=== PATIENT | male | born 1950 | race Caucasian/White ===

== ENCOUNTER 2017-06-08 20:58 | Inpatient (IN) | payer OTHER, MEDICARE ==
[2017-06-08] MEDS: TERAZOSIN HCL 5 MG CAP PO SCH (00:42)
[~2017-06-08 20:58] MED LIST: BISACODYL 10 MG SUPP RECTAL PRN; LACTULOSE SYRUP 20 GM/30 ML CUP PO PRN; MAGNESIUM HYDROXIDE SUSP 30 ML CUP PO PRN; NALOXONE HCL 0.4 MG/ML AMP IV PRN; SENNOSIDES 8.6 MG TAB PO PRN; SODIUM CHLORIDE 0.9% FLUSH 10 ML FLUSH IV FLUSH PRN; TERA5CAP3 PO; ZOLP10TA3 PO
[2017-06-08 21:00] VITALS: PULSE 100
[2017-06-08] MEDS: DOCUSATE SODIUM 50 MG/SENNA 8.6 MG TAB PO SCH (21:00)
[2017-06-08] MEDS: SODIUM CHLORIDE 0.9% FLUSH 10 ML FLUSH IV FLUSH SCH (21:00)
[2017-06-08] MEDS ORDERED: DILTIAZEM INJ 125 MG in SODIUM CHLORIDE 0.9% INJ 100 ML IV SCH (21:15)
[2017-06-08] MEDS ORDERED: DILTIAZEM HCL 25 MG/5 ML VIAL IVP ONE (21:15)
[2017-06-08 22:00] VITALS: BP 134/84; PULSE 87; PULSE 96; RESP 18; TEMP 97.6; O2SAT 97
--- NOTE | 2017-06-08 22:41 | HHI.HP ---
HPI Service [facility] Primary Care Physician Unknown Admission Diagnosis Diagnoses: Chief Complaint: fatigue and irregular heart beats Travel History International Travel<30 Days: No Contact w/Intl Traveler <30 Da: No History of Present Illness 67 y/o male with a history of a silent WV with no history of stents and BPH presented to the ED with complaints of fatigue and irregular heart beat. Patient states for the last 2 years he has been getting more fatigued then normal and has intermittent irregular heart beats. He states he was worked up by a stone sawyer and was told he had an EF of 47% and was never placed on medication. 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 He used to be an avid runner and in very good shape up until about 2 years ago. He states for the last 3 days he has been having increasing fatigue and he felt his heart rate was abnormal. He decided something may be wrong and wanted to get it checked out. At first he presented to [place] [facility] and was found to be in AFIB RVR with a HR of 108. He denies having any chest pain, but does have some dyspnea at times. He was given Metoprol and now his HR is controlled. He denies any fever, chills, headaches, dysuria, bloody stools or dizziness. He also denies any swelling in his lower extremities. Review of Systems Except as stated in HPI: all other systems reviewed are Neg Past Family Social History Past Medical History Silent [place] with no intervention BPH Past Surgical History Patient denies any medical history Reported Medications Reported Meds & Active Scripts Active Reported Zolpidem (Zolpidem Tartrate) 10 Mg Tab 10 Mg PO HS PRN Terazosin (Terazosin HCl) 5 Mg Cap 5 Mg PO HS Allergies: Coded Allergies: Ampicillin (Verified Allergy, Unknown, redness, 06/08/17) Codeine (Verified Allergy, Unknown, Cramping, 06/08/17) Active Ordered Medications Current Medications Medications (Trade) Dose Ordered Sig/Dereje Route Start Time Stop Time Status Last Admin (NS Flush) 2 ml UNSCH PRN IV FLUSH 06/08/17 19:15 (NS Flush) 2 ml BID IV FLUSH 06/08/17 21:00 (Narcan Inj) 0.4 mg UNSCH PRN IV 06/08/17 19:15 (Mirna-Colace) 1 tab BID PO 06/08/17 21:00 (Milk Of Magnesia Liq) 30 ml Q12H PRN PO 06/08/17 19:15 (Senokot) 17.2 mg Q12H PRN PO 06/08/17 19:15 (Dulcolax Supp) 10 mg DAILY PRN RECTAL 06/08/17 19:15 Lactulose 30 ml 30 ml DAILY PRN PO 06/08/17 19:15 (Heparin-D5W Inj) 250 ml @ 0 mls/hr TITRATE IV 06/08/17 22:45 (Hytrin) 5 mg HS PO 06/08/17 23:45 (Ambien) 10 mg HS PRN PO 06/08/17 23:45 Family History Patient denies any family history of heart disease. Social History Tobacco use: Quit 1978 Alcohol use: a glass of wine a night Illicit drug use: Denies Physical Exam Physical Exam GENERAL: This is a well-nourished, well-developed patient, who is a little nervous about his situation SKIN: No rashes, ecchymoses or lesions. Cool and dry. HEAD: Atraumatic. Normocephalic. EYES: Pupils equal round and reactive. Extraocular motions intact. No scleral icterus. No injection or drainage. ENT: Nose without bleeding, purulent drainage or septal hematoma. Airway patent. NECK: Trachea midline. No JVD or lymphadenopathy. Supple, nontender, no meningeal signs. CARDIOVASCULAR: Regular rate and irregular rhythm without murmurs, gallops, or rubs. RESPIRATORY: Clear to auscultation. Breath sounds equal bilaterally. No wheezes , rales, or rhonchi. GASTROINTESTINAL: Abdomen soft, non-tender, nondistended. BS x 4 MUSCULOSKELETAL: Extremities without clubbing, cyanosis, or edema. No joint tenderness, effusion, or edema noted. No calf tenderness. NEUROLOGICAL: Awake and alert. Motor and sensory grossly within normal limits. Five out of 5 muscle strength in all muscle groups. Normal speech. Assessment and Plan Problem List: (1) Afib ICD Code: I48.91 Status: Acute (2) BPH (benign prostatic hyperplasia) ICD Code: N40.0 Status: Chronic (3) Acute kidney injury ICD Code: N17.9 Status: Acute Assessment and Plan 67 y/o male with a history of a silent [place] with no history of stents and BPH presented to the ED with complaints of fatigue and irregular heart beat. Afib, new onset On admission EKG reviewed and showed afib RVR HR 108, Metoprolol given and patient has been controlled. On telemetry patient shows dysthymia with PVCs -Cont to monitor telemetry -Consult cardiology, for recommendations -Cont Heparin drip -Hold Cardizem drip for now as patient HR is controlled at 75 -2d echo ordered Acute kidney injury, creatine 1.5, unknown baseline suspect mild dehydration -Trend levels, BMP in AM -Gentle IVF x 1L BPH, chronic -Cont home medications DVT prophylaxis: Heparin Discussed Condition With patient and RN Physician Certification 2 Midnight Certification Type: Admission for Inpatient Services Order for Inpatient Services The services are ordered in accordance with Medicare regulations or non- Medicare payer requirements, as applicable. In the case of services not specified as inpatient-only, they are appropriately provided as inpatient services in accordance with the 2-midnight benchmark. Estimated LOS (days): 2 days is the estimated time the patient will need to remain in the hospital, assuming treatment plan goals are met and no additional complications. Post-Hospital Plan: Home Problem Qualifiers (1) BPH (benign prostatic hyperplasia): Qualified Code: N40.1 - Benign prostatic hyperplasia with lower urinary tract symptoms, symptom details unspecified Doris Inman Jun 08, 2017 22:41
[2017-06-08] MEDS ORDERED: HEPARIN-D5W INJ 250 ML IV SCH (22:45)
[2017-06-08 23:00] VITALS: PULSE 82
[2017-06-09] VITALS (24 sets, daily range): BP systolic 118–153; BP diastolic 56–89; PULSE 60–84; RESP 16–20; TEMP 97.4–98.2; O2SAT 96–98
[2017-06-09] MEDS ORDERED: SODIUM CHLOR 0.9% 1000 ML INJ 1,000 ML IV ONE (00:15)
[2017-06-09] MEDS ORDERED: SODIUM CHLOR 0.9% 1000 ML INJ 1,000 ML IV SCH (00:15)
[2017-06-09] MEDS: ZOLPIDEM TARTRATE 10 MG TAB PO PRN ×2 (01:15→23:22)
[2017-06-09 02:14] LABS: APTT (PATIENT) 35.5 SEC (24.3-30.1)
[2017-06-09 07:53] LABS: AUTOMATED NEUTROPHIL # 3.8 TH/MM3 (1.8-7.7); BASOPHIL % 0.5 % (0.0-2.0); EOSINOPHIL # 0.1 TH/MM3 (0-0.4); EOSINOPHIL % 1.8 % (0.0-4.0); HEMO FLAGS DIFF FINAL; LYMPH % 38.2 % (9.0-44.0); LYMPHOCYTE # 2.9 TH/MM3 (1.0-4.8); MEAN CELL VOLUME 88.8 FL (80.0-100.0); MEAN CORPUSCULAR HEMOGLOBIN 29.3 PG (27.0-34.0); MONO % 9.2 % (0.0-8.0); NEUT % 50.3 % (16.0-70.0); PLATELET COUNT 177 TH/MM3 (150-450); RED BLOOD COUNT 5.29 MIL/MM3 (4.50-5.90); RED CELL DISTRIBUTION WIDTH 14.2 % (11.6-17.2); WHITE BLOOD COUNT 7.5 TH/MM3 (4.0-11.0)
[2017-06-09] MEDS: SODIUM CHLORIDE 0.9% FLUSH 10 ML FLUSH IV FLUSH SCH ×2 (08:07→20:36)
[2017-06-09] MEDS: DOCUSATE SODIUM 50 MG/SENNA 8.6 MG TAB PO SCH ×2 (08:07→20:37)
[2017-06-09 08:20] LABS: BICARBONATE 29.9 MEQ/L (21.0-32.0); POTASSIUM 4.3 MEQ/L (3.5-5.1)
--- NOTE | 2017-06-09 10:25 | MB ---
cc: AMAN PEREZ MD DATE OF CONSULTATION: 06/09/2017 REASON FOR CONSULTATION: Onset atrial fibrillation. HISTORY OF PRESENT ILLNESS The patient is a very pleasant 67-year-old gentleman with a possible history of atrial fibrillation though the details are somewhat unclear. Also with history of hypertension, particularly with exercise who presents with quite a long period of fatigue but four days of palpitations mainly experienced by him checking his own pulse but also with exacerbation and general fatigue. He presented in atrial fibrillation but is since converted he is otherwise asymptomatic denying chest pain, shortness of breath, lightheadedness or dizziness. PAST MEDICAL HISTORY Benign prostatic hypertrophy Hypertension. MEDICATIONS Terazosin. ALLERGIES Ampicillin Codeine PHYSICAL EXAMINATION IN GENERAL: Afebrile, pulse 63, Respiratory rate 15, blood pressure 124/73, satting 96%. IN GENERAL: Pleasant overweight gentleman in no distress. NECK: No JVD. LUNGS: The lungs are clear to auscultation bilaterally. CARDIOVASCULAR SYSTEM: Regular rate rhythm, somewhat distant heart sounds. No major murmurs appreciated. ABDOMEN: The abdomen is benign. EXTREMITIES: No edema. LABORATORY DATA Cardiac enzymes are negative x3 Sodium 143, potassium 4.3, bicarb 29.9, BUN 14, creatinine 1.48, INR is 1.0, white count 7.5, hematocrit 47, platelets 177. EKG showed atrial fibrillation with nonspecific ST changes. IMPRESSION 1. Atrial fibrillation, the patient has new onset Atrial fibrillation with generalized fatigue. I have started him on Eliquis for NATTY'S vas score of 2 for age and hypertension as well as low-dose oral Cardizem. 2. Fatigue, the patient has had long standing fatigue and with his atrial fibrillation. I do want to rule out an anginal equivalent also particular given some subtle ST changes on his EKG will have him undergo nuclear stress test. 3. If no major findings are found on his echo or his stress test. He could be discharged home with outpatient followup on the regimen which was started. Thank you again for the opportunity to participate this patient's care. MD CRISSY Clark/catrachita /9:14 AM /10:13 AM
[2017-06-09] MEDS ORDERED: REGADENOSON INJ 0.4 MG/5 ML SYR ONE (11:38)
--- NOTE | 2017-06-09 13:11 | RADRPT ---
EXAM DATE/TIME: 06/09/2017 10:53 [facility] COMPARISON: No previous studies available for comparison. INDICATIONS : Fatigue. Atrial fibrillation. DOSE: 31 mCi Tc99m Myoview at stress. 10.1 mCi Tc99m Myoview at rest. 0.4 mg Lexiscan STRESS SYMPTOMS: Chest pressure. EJECTION FRACTION: 62% MEDICAL HISTORY : Myocardial infarction. SURGICAL HISTORY : None. ENCOUNTER: Initial ACUITY: 1 day PAIN SCALE: 0/10 LOCATION: chest TECHNIQUE: The patient underwent pharmacologic stress with infusion of prescribed dose. Continuous ECG tracing was monitored during stress. Gated SPECT imaging was performed after stress and conventional SPECT i maging was performed at rest. The examination was performed on a SPECT/CT scanner, both attenuation and non-corrected datasets were reviewed. FINDINGS: DISTRIBUTION: The maximum perfused segment at stress is in the anterolateral wall. PERFUSION STUDY: There is fixed mild/moderate perfusion deficit in the inferior wall. Small to moderate, mild reversib le perfusion deficit seen inferolateral wall. GATED STUDY: There is intact wall motion and thickening without hypokinetic or dyskinetic segments. 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 Wall motion within normal limits. RISK CATEGORY: Intermediate Andrea Salvador MD on June 09, 2017 at 13:07 Board Certified Radiologist. This report was verified electronically.
[2017-06-09] MEDS: APIXABAN 5 MG TABLET PO SCH ×2 (13:39→20:36)
[2017-06-09] MEDS: DILTIAZEM-CD 120 MG CAP ER PO SCH (13:39)
[2017-06-09 15:29] LABS: APTT (PATIENT) 29.5 SEC (24.3-30.1)
--- NOTE | 2017-06-09 15:34 | HHI.PR ---
Subjective Remarks Follow-up for chest pain and A. fib. Objective Vital Signs Date Time Temp Pulse Resp B/P Pulse Ox O2 Delivery O2 Flow Rate FiO2 06/09/17 14:01 74 06/09/17 13:45 97.5 66 18 153/79 97 06/09/17 13:00 63 06/09/17 10:00 68 06/09/17 09:00 66 06/09/17 08:01 97.4 72 18 125/81 97 06/09/17 08:00 72 06/09/17 07:01 63 06/09/17 06:00 62 06/09/17 05:00 62 06/09/17 04:00 64 06/09/17 03:00 98.2 70 16 124/73 96 06/09/17 03:00 68 06/09/17 02:00 74 06/09/17 01:00 70 06/09/17 00:00 98.2 83 18 138/77 97 06/09/17 00:00 70 06/08/17 23:00 82 06/08/17 22:00 96 06/08/17 22:00 97.6 87 18 134/84 97 06/08/17 21:00 100 I/O 06/08/17 06/08/17 06/08/17 06/09/17 06/09/17 06/09/17 06:59 14:59 22:59 06:59 14:59 22:59 Intake Total 994 ml Output Total 200 ml Balance 794 ml Intake Oral 903 ml IV Total 91 ml Output Urine Total 200 ml # Voids 2 Result Diagram: 06/09/17 0726 06/09/17 0726 Imaging Last Impressions Myocardial Perfusion Scan Nuc Med 06/09/17 0000 Signed Impressions: Service Date/Time: Friday, June 09, 2017 10:53 - CONCLUSION: Mild stress-induced ischemia in the inferolateral wall, 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 Wall motion within normal limits. RISK CATEGORY: Intermediate Andrea Salvador MD Objective Remarks GENERAL: Resting comfortably, no acute distress EYES: No scleral icterus. No injection or drainage. CARDIOVASCULAR: Regular rate and rhythm without murmurs, gallops, or rubs. RESPIRATORY: Breath sounds equal bilaterally. No accessory muscle use. GASTROINTESTINAL: Abdomen soft, non-tender, nondistended. MUSCULOSKELETAL: No cyanosis, or edema. A/P Problem List: (1) Afib ICD Code: I48.91 (2) BPH (benign prostatic hyperplasia) ICD Code: N40.0 (3) Acute kidney injury ICD Code: N17.9 Assessment and Plan 67 y/o male with a history of a silent [place] with no history of stents and BPH presented to the ED with complaints of fatigue and irregular heart beat. Afib, new onset Has been started on a eliquis by cards appreciate input. Tachycardia improved Lexiscan impression suggestive of mild reversible ischemia. Echo is pending. -Cont to monitor telemetry Acute kidney injury, creatine 1.48, more like chronic due to minimal improvement -Trend levels, BMP in AM BPH, chronic -Cont home medications Problem Qualifiers (1) BPH (benign prostatic hyperplasia): Qualified Code: N40.1 - Benign prostatic hyperplasia with lower urinary tract symptoms, symptom details unspecified Jordi Gallardo MD Jun 09, 2017 15:34
[2017-06-09] MEDS: TERAZOSIN HCL 5 MG CAP PO SCH (20:36)
[2017-06-10] VITALS (14 sets, daily range): BP systolic 126–135; BP diastolic 75–81; PULSE 58–86; RESP 18; TEMP 97.6–98.1; O2SAT 97–99
[2017-06-10] MEDS: DILTIAZEM-CD 120 MG CAP ER PO SCH (08:35)
[2017-06-10] MEDS: APIXABAN 5 MG TABLET PO SCH (08:36)
--- NOTE | 2017-06-10 08:49 | ECHRPT ---
Indication: HEART FAILURE CONCLUSIONS Normal left ventricular size. Mild concentric left ventricular hypertrophy. The left ventricular systolic function is normal with an estimated ejection fraction in the range of 55-60%. No regional wall motion abnormalities are present. Mild thickening of the mitral valve leaflets. The anterior mitral leaflet flattens more but does not significantly prolapses, mild mitral valve regurgitation. BP: 127 / 81 HR: 249 Rhythm: Sinus MEASUREMENTS (Male / Female) Normal Values Technical Quality:Fair 2D ECHO LV Diastolic Diameter PLAX 4.9 cm 4.2 - 5.9 / 3.9 - 5.3 cm LV Systolic Diameter PLAX 3.8 cm IVS Diastolic Thickness 1.2 cm 0.6 - 1.0 / 0.6 - 0.9 cm LVPW Diastolic Thickness 1.2 cm 0.6 - 1.0 / 0.6 - 0.9 cm LV Relative Wall Thickness 0.5 LVOT Diameter 2.6 cm Aortic Root Diameter 3.4 cm LA Systolic Diameter LX 3.5 cm 3.0 - 4.0 / 2.7 - 3.8 cm M-MODE AV Cusp Separation MM 2.2 cm DOPPLER AV Peak Velocity 105.0 cm/s AV Peak Gradient 4.4 mmHg AV Mean Gradient 3.0 mmHg AV Velocity Time Integral 22.7 cm LVOT Peak Velocity 102.0 cm/s LVOT Peak Gradient 4.2 mmHg LVOT Velocity Time Integral 18.6 cm AV Area Cont Eq vti 4.4 cm AV Area Cont Eq pk 5.2 cm Mitral E Point Velocity 70.6 cm/s Mitral A Point Velocity 45.4 cm/s Mitral E to A Ratio 1.6 LV E' Lateral Velocity 10.5 cm/s Mitral E to LV E' Lateral Ratio 6.7 LV E' Septal Velocity 9.1 cm/s Mitral E to LV E' Septal Ratio 7.8 PV Peak Velocity 66.2 cm/s PV Peak Gradient 1.8 mmHg FINDINGS LEFT VENTRICLE Normal left ventricular size. Mild concentric left ventricular hypertrophy. The left ventricular systolic function is normal with an estimated ejection fraction in the range of 55-60%. Left ventricular diastolic function parameters are normal. No regional wall motion abnormalities are present. RIGHT VENTRICLE Normal right ventricular size and systolic function. LEFT ATRIUM The left atrial size is normal. RIGHT ATRIUM The right atrial size is normal. ATRIAL SEPTUM Normal atrial septal thickness without atrial level shunting by limited color doppler interrogation. AORTA The aortic root and proximal ascending aorta are normal in size on limited imaging. MITRAL VALVE Mild thickening of the mitral valve leaflets. The anterior mitral leaflet flattens more but does not significantly prolapses.mild mitral valve reg urgitation. AORTIC VALVE Trileaflet aortic valve. No aortic valve stenosis or regurgitation. TRICUSPID VALVE Structurally normal tricuspid valve. No tricuspid valve stenosis or regurgitation. PULMONARY VALVE The pulmonary valve is not well visualized. VESSELS The inferior vena cava is normal in size. PERICARDIUM No pericardial effusion. Riley Fletcher MD (Electronically Signed) Final Date:10 June 2017 08:48
[2017-06-10] MEDS: SODIUM CHLORIDE 0.9% FLUSH 10 ML FLUSH IV FLUSH SCH (09:00)
[2017-06-10] MEDS: DOCUSATE SODIUM 50 MG/SENNA 8.6 MG TAB PO SCH (09:00)
--- NOTE | 2017-06-10 09:35 | HHI.DCPOC ---
Discharge Care Plan Diagnosis: (1) Afib Additional Problems A. fib, irregular heart rate Goals to Promote Your Health * To prevent worsening of your condition and complications * To maintain your health at the optimal level To minimize her risk of having a stroke, we advised that you take a blood thinner as prescribed. For more treatment options for her A. fib, please see an lime spreader within 1 month's time after discharge. Also regarding a history of actually having heart attack, we advise that you continue taking a baby aspirin along with taking a high intensity statin such as atorvastatin or rosuvastatin. Since you are currently against taking those particular medications, I advise that you have a discussion with your senior director or primary care doctor upon discharge to further elucidate your concerns. Directions to Meet Your Goals Take your medications as prescribed Follow your dietary instruction Follow activity as directed Keep your appointments as scheduled Take your immunizations and boosters as scheduled If your symptoms worsen call your PCP, if no PCP go to Urgent Care Center or Emergency Room Smoking is Dangerous to Your Health. Avoid second hand smoke Call the 24-hour hour crisis hotline for domestic abuse at Jordi Gallardo MD Jun 10, 2017 09:35
[2017-06-10] MEDS ORDERED: ASPI-110 PO (09:38)
[2017-06-10] MEDS ORDERED: CARD120C4 PO (09:45)
[2017-06-10] MEDS ORDERED: APIX5TAB PO (09:46)
--- NOTE | 2017-06-10 09:53 | HHI.DS ---
Discharge Summary Admission Date Jun 08, 2017 at 21:03 Discharge Date: Jun 10, 2017 Admitting Diagnosis Chest pain and Atrial fibrillation with RVR (1) Afib ICD Code: I48.91 Diagnosis: Principal (2) BPH (benign prostatic hyperplasia) ICD Code: N40.0 (3) Acute kidney injury ICD Code: N17.9 Procedures none Brief History - From Admission 67 y/o male with a history of a silent [place] with no history of stents and BPH presented to the ED with complaints of fatigue and irregular heart beat. Patient states for the last 2 years he has been getting more fatigued then normal and has intermittent irregular heart beats. He states he was worked up by a aircraft structure mechanic and was told he had an EF of 47% and was never placed on medication. 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 He used to be an avid runner and in very good shape up until about 2 years ago. He states for the last 3 days he has been having increasing fatigue and he felt his heart rate was abnormal. He decided something may be wrong and wanted to get it checked out. At first he presented to [place] [facility] and was found to be in AFIB RVR with a HR of 108. He denies having any chest pain, but does have some dyspnea at times. He was given Metoprol and now his HR is controlled. He denies any fever, chills, headaches, dysuria, bloody stools or dizziness. He also denies any swelling in his lower extremities. 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 Wall motion within normal limits. RISK CATEGORY: Intermediate Andrea Salvador MD 2-D echo showing an ejection fraction of at least 50%, unremarkable otherwise PE at Discharge GENERAL: Resting comfortably EYES: No scleral icterus. No injection or drainage. CARDIOVASCULAR: Regular rate and rhythm without murmurs, gallops, or rubs. RESPIRATORY: Breath sounds equal and clear bilaterally. No accessory muscle use. GASTROINTESTINAL: Abdomen soft, non-tender, nondistended. MUSCULOSKELETAL: No cyanosis, or edema. Hospital Course Patient was admitted on telemetry. His heart rate had been stabilized relatively quickly with diltiazem. Cardiology was consulted and started the pt on eliquis for stroke risk. Patient had a Lexiscan that did show mild reversible ischemia and otherwise unremarkable echocardiogram, discussed results with cardiology who stated that no acute intervention was needed. Patient's symptoms had quickly resolved in less than 24 hours, was chest pain- free and palpitations free. Patient was very hesitant with the idea of anticoagulation out of the concern for uncontrolled bleeding, and he was more so hesitant with taking eliquis since there is no reversible agent for this at the time. I informed him clearly that he was indeed had a substantially elevated stroke risk and that from the medical standpoint anticoagulation from some agent was at the least warranted. Patient says he was willing to take prescription upon discharge and says that he will ultimately do his own personal reading and research and make a long-term decision as well. I offered him to see an anthropology instructor upon discharge to see if he was a candidate for other treatment options - 2 which the patient was very receptive. As explained to the patient that he also medically warranted high-intensity statin therapy given that he had a history of heart attack in the past, but he said that he had already made up his mind a long time ago to not take statins. Patient states that his impaired renal function is chronic and nothing new. Patient has met maximum benefit from hospitalization and is clinically stable for discharge. Pt Condition on Discharge: Good Discharge Disposition: Discharge Home Discharge Time: > 30 minutes Discharge Instructions DIET: Follow Instructions for: Heart Healthy Diet Activities you can perform: Regular-No Restrictions Follow up Referrals: Cardiology - 10 Days with Prashanth Pa MD PCP Follow-up - 1 Week New Medications: Aspirin DR (Aspirin 81) 81 Mg Tabdr 81 MG PO DAILY Blood Clot Prevention #30 Ref 0 TAB Apixaban (Eliquis) 5 Mg Tab 5 MG PO BID Blood Clot Prevention #62 TAB Diltiazem CD 24 HR (Cardizem CD 24 HR) 120 Mg Caper 120 MG PO DAILY Regulate Heart Beat #30 Jordi Lincoln MD Jun 10, 2017 09:53
--- NOTE | 2017-06-10 11:21 | PD.CARD.PN ---
Subjective Subjective Remarks Feels well, in nsr, wants to go home Objective Medications Administered Medications Medications (Trade) Dose Ordered Sig/Dereje Route PRN Reason Start Time Stop Time Status Last Admin Dose Admin Sodium Chloride (NS Flush) 2 ml BID IV FLUSH 06/08/17 21:00 06/10/17 09:00 Terazosin HCl (Hytrin) 5 mg HS PO 06/08/17 23:45 06/09/17 20:36 Zolpidem Tartrate (Ambien) 10 mg HS PRN PO INSOMNIA 06/08/17 23:45 06/09/17 23:22 Apixaban (Eliquis) 5 mg BID PO 06/09/17 10:15 06/10/17 08:36 Diltiazem HCl (Cardizem Cd) 120 mg DAILY PO 06/09/17 10:00 06/10/17 08:35 Vital Signs / I&O Vital Signs Date Time Temp Pulse Resp B/P Pulse Ox O2 Delivery O2 Flow Rate FiO2 06/10/17 10:00 86 06/10/17 09:00 66 06/10/17 08:15 97.8 62 18 135/75 97 06/10/17 08:00 60 06/10/17 07:01 64 06/10/17 06:00 58 06/10/17 05:00 60 06/10/17 04:00 60 06/10/17 03:00 98.1 63 18 127/81 97 06/10/17 03:00 61 06/10/17 02:00 64 06/10/17 01:00 64 06/10/17 00:00 70 06/09/17 23:00 97.6 64 20 129/72 98 06/09/17 23:00 84 06/09/17 22:00 60 06/09/17 21:00 68 06/09/17 19:00 72 06/09/17 19:00 97.9 69 16 146/89 98 06/09/17 18:01 66 06/09/17 17:01 68 06/09/17 16:00 64 06/09/17 15:01 97.9 66 18 118/56 97 06/09/17 15:00 64 06/09/17 14:01 74 06/09/17 13:45 97.5 66 18 153/79 97 06/09/17 13:00 63 I/O 06/09/17 06/09/17 06/09/17 06/10/17 06/10/17 06/10/17 07:00 15:00 23:00 07:00 15:00 23:00 Intake Total 994 ml 630 ml 480 ml Output Total 200 ml 375 ml 275 ml Balance 794 ml 255 ml 205 ml Intake Oral 903 ml 480 ml 480 ml IV Total 91 ml 150 ml Output Urine Total 200 ml 375 ml 275 ml # Voids 2 3 # Bowel Movements 0 Physical Exam GENERAL: This is a well-nourished, well-developed patient, in no apparent distress. CARDIOVASCULAR: Regular rate and rhythm without murmurs, gallops, or rubs. RESPIRATORY: Clear to auscultation. Breath sounds equal bilaterally. No wheezes , rales, or rhonchi. GASTROINTESTINAL: Abdomen soft, non-tender, nondistended. Normal active bowel sounds MUSCULOSKELETAL: Extremities without clubbing, cyanosis, or edema. NEURO: Alert & Oriented x4 to person, place, time, situation. 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 Wall motion within normal limits. RISK CATEGORY: Intermediate Andrea Salvador MD Assessment and Plan Problem List: (1) New onset a-fib Assessment and Plan: on eliquis, cardizem (2) Abnormal nuclear cardiac imaging test Assessment and Plan: Mild ischemia, no chest pain, will medically manage; added atorv. Assessment and Plan Ok to d/c home, will f/u in my office in 1-2 weeks. Riley Fletcher MD Jun 10, 2017 11:20
[2017-06-10] MEDS ORDERED: PRAVASTATIN SOD 20 MG TAB PO SCH (21:00)
== END 2017-06-10 11:40 | disposition home or self-care (01) | DRG 309 ==
LOC: NEDDLT 20:58 → HCIS 21:03
PROVIDERS: ADMIT Hospitalist; ATTEND Hospitalist
DX: I48.91 Unspecified atrial fibrillation (principal); N17.9 Acute kidney failure, unspecified; N40.1 Benign prostatic hyperplasia with lower urinary tract symptoms; I49.3 Ventricular premature depolarization; F34.1 Dysthymic disorder; I25.2 Old myocardial infarction; I10 Essential (primary) hypertension; Z87.891 Personal history of nicotine dependence
CPT/HCPCS: 71010; 78452; 80048; 82550; 83735; 84484; 85025; 85610; 85730; 93005; 93017; 93306; A9502; J1644; J2060; J2785; J7040

== ENCOUNTER 2018-05-13 12:43 | Observation (INO) ==
[2018-05-13 14:31] LABS: Baso % (Auto) 0.4 % (0.0-2.0); Eos # (Auto) 0.1 th/mm3 (0.0-0.4); Hematocrit 50.3 % (39.0-51.0); Hemoglobin 16.8 gm/dL (13.0-17.0); Lymph # (Auto) 1.8 th/mm3 (1.0-4.8); Mean Corpuscular HGB Conc 33.5 % (32.0-36.0); Mean Corpuscular Hemoglobin 29.6 pg (27.0-34.0); Mean Corpuscular Volume 88.5 fL (80.0-100.0); Mean Platelet Volume 10.3 fL (7.0-11.0); Mono # (Auto) 0.8 th/mm3 (0.0-0.9); Mono % (Auto) 9.5 % (0.0-8.0); Neut # (Auto) 5.7 th/mm3 (1.8-7.7); Neut % (Auto) 68.1 % (16.0-70.0); Platelet Count 192 th/mm3 (150-450); Red Blood Count 5.69 mil/mm3 (4.50-5.90); White Blood Count 8.4 th/mm3 (4.0-11.0)
--- NOTE | 2018-05-13 14:43 | XR ---
EXAM DATE: 05/13/2018 2:40 PM EDT AGE/SEX: 67 years / Male INDICATIONS: Shortness of breath. CLINICAL DATA: This is the patient's initial encounter. Patient reports that signs and symptoms have been present for 1 day and indicates a pain score of 0/10. MEDICAL/SURGICAL HISTORY: None. None. COMPARISON: [facility], CHEST SINGLE AP, 06/08/2017. . FINDINGS: PA and lateral views of the chest demonstrate the lungs to be symmetrically aerated without evidence of mass, infiltrate or effusion. The cardiomediastinal contours are unremarkable. Osseous structures are intact. CONCLUSION: Negative for an acute process Electronically signed by: Fernandez Whelan MD 05/13/2018 2:42 PM EDT
[2018-05-13 14:50] LABS: Anion Gap 7 meq/L (5-15); Blood Urea Nitrogen 14 mg/dL (7-18); Calcium 8.8 mg/dL (8.5-10.1); Carbon Dioxide 23.8 meq/L (21.0-32.0); Chloride 110 meq/L (98-107); Glomerular Filtration Rate 56 mL/min (>89); Glucose,Random 93 mg/dL (74-106); Potassium 4.2 meq/L (3.5-5.1); Sodium 141 meq/L (136-145)
[2018-05-13 14:54] LABS: Creatine Kinase 109 U/L (39-308)
--- NOTE | 2018-05-13 15:27 | ED ---
HPI General Chief Complaint: Chest Pain Stated Complaint: Fall/Cardiac Complaint Time Seen by Provider: 05/13/18 14:42 Source: patient Mode of arrival: ambulatory Limitations: no limitations History of Present Illness HPI narrative: 67-year-old male the presents to the ED for evaluation of possible syncope today. Per patient she had a syncopal episode where he did not lose consciousness. Per patient he was going to urinate today and he did and then he lost control of his body and he fell to the ground. He denies hitting his head or losing consciousness. He does take Eliquis. He was able to get himself back up on his own. Patient got really concerned because last week he overexerted himself and he noticed that his heart rate went elevated. Per patient he doubled the dose of Cardizem as he is lens matcher have told him to do so if it happened. He states that he takes 120 mg of Cardizem ER and to 2 doses every day since 08 May. He has not noted any symptoms alert and his heart rate still being elevated. Per patient today she had no preloading symptoms to the syncopal episode. She got concerned because the first time this ever happened to him. She has a history of heart disease alert and A. fib. No urinary or bowel movement issues. No fevers chills or sweats. No chest pain. Complete Quality Measures for STEMI Alert Patients Related Data Home Medications Medication Instructions Recorded Confirmed Cardizem 120 mg PO BID 05/13/18 05/13/18 apixaban [Eliquis] 5 mg PO BID 05/13/18 05/13/18 Allergies Allergy/AdvReac Type Severity Reaction Status Date / Time ampicillin Allergy Unknown redness Verified 05/13/18 13:40 codeine Allergy Unknown Cramping Verified 05/13/18 13:40 Review of Systems ROS Unobtainable All other systems reviewed negative except as stated in HPI PMFSH History History Provided By: Patient Medical History Medical History Atrial fibrillation (Acute) Surgical History Surgical History No history of previous surgery (Acute) Family History Family History Other No family history of cardiac disease Social History Social History Substance History: No History of Abuse Second Hand Smoke Exposure: No Smoking Status: Unknown if ever smoked How Often Do You Have a Drink Containing Alcohol: Monthly or less Recent Travel in [place] within the Last 8 Weeks: No Recent Out of Country Travel within the Last 8 Weeks: No Exam Narrative Exam Narrative: GENERAL: Well-appearing SKIN: Focused skin assessment warm/dry. HEAD: Atraumatic. Normocephalic. EYES: Pupils equal and round. No scleral icterus. No injection or drainage. ENT: No nasal bleeding or discharge. Mucous membranes pink and moist. Tongue is midline. No uvula deviation. NECK: Trachea midline. No JVD. CARDIOVASCULAR: Regular rate and rhythm. No murmur appreciated. RESPIRATORY: No accessory muscle use. Clear to auscultation. Breath sounds equal bilaterally. GASTROINTESTINAL: Abdomen soft, non-tender, nondistended. Hepatic and splenic margins not palpable. MUSCULOSKELETAL: No obvious deformities. No clubbing. No cyanosis. No edema. Full range of motion of the upper and lower extremities bilaterally. 2+ pulses bilaterally. NEUROLOGICAL: Awake and alert. No obvious cranial nerve deficits. Motor grossly within normal limits. Normal speech. PSYCHIATRIC: Appropriate mood and affect; insight and judgment normal. Course Initial Documented Vital Signs Temperature 97.4 F L 05/13/18 13:29 Pulse Rate 78 05/13/18 13:29 Respiratory Rate 16 05/13/18 13:29 Blood Pressure 157/83 H 05/13/18 13:29 Pulse Oximetry 98 05/13/18 13:29 Last Documented Vital Signs Temperature 97.4 F L 05/13/18 13:29 Pulse Rate 76 05/13/18 19:00 Respiratory Rate 18 05/13/18 19:00 Blood Pressure 121/70 05/13/18 19:00 Pulse Oximetry 98 05/13/18 19:00 Medical Decision Making LATASHA Attestation LATASHA supervised visit: Yes MDM Narrative Medical decision making narrative: 67-year-old male that presents to the ED for evaluation of possible syncope. Patient was properly examined and was found to have signs and symptoms of unclear etiology. EKG did not show any sign of acute ischemia but did show what appears to be atrial flutter with a rate of 4 to 1. Labs and imaging were ordered. labs and imaging WNL. Case discussed with my attending who recommends admission. My attending Dr Carroll himself evaluated the patient and recommends admission. Patient preferred we contacted his lens matcher dr Asif. I spoke with Dr Silva who is banquet server on call for patient's lens matcher and recommends admission as well. THis was discussed with patient and family who agree with admission for possible cardiac near syncope. KATY carrion and Dr Christopher agrees to admission. Differential Diagnosis Differential Diagnosis: Arrhythmia versus syncope versus atrial flutter versus A. fib Medical Records Medical records reviewed: Yes I reviewed the patient's medical records. Lab Data Lab results reviewed: Yes I reviewed the patient's lab results. Lab results narrative: Troponin and CK-MB negative. Result diagrams: 05/13/18 14:03 05/13/18 14:03 Lab Results 05/13/18 05/13/18 Range/Units 14:03 14:03 WBC 8.4 (4.0-11.0) th/mm3 RBC 5.69 (4.50-5.90) mil/mm3 Hgb 16.8 (13.0-17.0) gm/dL Hct 50.3 (39.0-51.0) % MCV 88.5 (80.0-100.0) fL MCH 29.6 (27.0-34.0) pg MCHC 33.5 (32.0-36.0) % RDW 14.0 (11.6-17.2) % Plt Count 192 (150-450) th/mm3 MPV 10.3 (7.0-11.0) fL Neut % (Auto) 68.1 (16.0-70.0) % Lymph % (Auto) 21.0 (9.0-44.0) % [place] % (Auto) 9.5 H (0.0-8.0) % Eos % (Auto) 1.0 (0.0-4.0) % Baso % (Auto) 0.4 (0.0-2.0) % Neut # (Auto) 5.7 (1.8-7.7) th/mm3 Lymph # (Auto) 1.8 (1.0-4.8) th/mm3 [place] # (Auto) 0.8 (0.0-0.9) th/mm3 Eos # (Auto) 0.1 (0.0-0.4) th/mm3 Baso # (Auto) 0.0 (0.0-0.2) th/mm3 WBC Differential . Differential Comment Auto diff final Sodium 141 (136-145) meq/L Potassium 4.2 (3.5-5.1) meq/L Chloride 110 H (98-107) meq/L Carbon Dioxide 23.8 (21.0-32.0) meq/L Anion Gap 7 (5-15) meq/L BUN 14 (7-18) mg/dL Creatinine 1.28 (0.60-1.30) mg/dL Estimated GFR 56 L (>89) mL/min Random Glucose 93 (74-106) mg/dL Calcium 8.8 (8.5-10.1) mg/dL Total Creatine Kinase 109 (39-308) U/L CK-MB (CK-2) 2.0 (0.5-3.6) ng/mL Troponin I Less than 0.02 L (0.02-0.05) ng/mL Imaging Data Attestation: I personally reviewed and interpreted this imaging study as follows : (EKG shows atrial flutter with a rate of 4 to 1. No sign of ischemia read by me and attending.) Radiologist's impression: ITS Impressions Chest X-Ray 05/13/18 13:40 CONCLUSION: Negative for an acute process Discharge Plan Discharge Disposition Patient Disposition: 30 Still Patient Discharge Details Discharge Problem: Near syncope Physicians Team ED Provider: Akash Carroll ED Midlevel Provider: Noah Staples Primary Care Provider: Darek Greco Attending Provider: Stacey Christopher Other Providers: Riley Fletcher Discharge Interventions Interventions: ED Discharge Assessment Last Done: 05/13/18 21:00 Vital Signs Last Done: 05/13/18 19:00 Status ED Status: Left Department Discharge Information Discharge Date/Time: 05/13/18 21:03
[2018-05-13] MEDS ORDERED: Bisacodyl 10 MG Supp RECTAL PRN (19:53)
[2018-05-13] MEDS ORDERED: Acetaminophen 325 MG Tablet PO PRN (19:53)
[2018-05-13] MEDS ORDERED: Temazepam 15 MG Capsule PO PRN (19:53)
--- NOTE | 2018-05-13 20:08 | P.HP ---
History of Present Illness Service: [facility] Primary Care Physician: Darek Greco Chief Complaint: Presyncope History of Present Illness: 67-year-old male with a past medical history significant for atrial fibrillation , anticoagulated on Eliquis, presents the emergency department for evaluation of a presyncopal episode. The patient reports around 10 AM he just stood up to get out of bed when he suddenly felt dizzy and collapsed to the ground. He reports his symptoms remained for approximately 10 seconds and he was able to get up and continue what he was doing. He denies any loss of consciousness. No accompanying chest pain or shortness of breath. No heart palpitations. No abdominal pain. No nausea/vomiting/diarrhea. No fevers/chills. No lateralizing signs/symptoms. Inpatient Certification: I certify that the inpatient services were ordered in accordance with Medicare regulations governing the order. This includes certification that hospital inpatient services are reasonable and necessary and in the case of services not specified as inpatient-only under 42 CFR 419.22(n), that they are appropriately provided as inpatient services in accordance to with the 2-midnight benchmark under 43 CFR 412.3(e) Review of Systems All other systems reviewed negative except as stated in HPI PMFSH - History History Provided By: Patient - Medical History Medical History: Medical History (Last Updated 05/13/18 @ 20:04 by Stacey Christopher MD) Atrial fibrillation - Surgical History Surgical History: Surgical History (Last Updated 05/13/18 @ 20:04 by Stacey Christopher MD) No history of previous surgery - Family History Family History: Family History (Last Updated 05/13/18 @ 20:04 by Stacey Christopher MD) Other No family history of cardiac disease - Tobacco History Second Hand Smoke Exposure: No Tobacco Use In Past 30 Days: No Smoking Status: Unknown if ever smoked - Alcohol History How Often Do You Have a Drink Containing Alcohol: Monthly or less - Substance Use History Substance History: No History of Abuse - Travel History Recent Travel in the [place] Within the Last 8 Weeks: No Recent Travel Out of the Country Within the Last 8 Weeks: No - Immunization History Tetanus Immunization: <5 Years Hx Influenza Vaccine This Season: No Medications and Allergies Active Medications: Active Medications Acetaminophen (Tylenol) 650 mg PO Q4H PRN PRN Reason: Temp > 100.4 Al Hydroxide/Mg Hydroxide (Milk Of Magnesia Liq) 30 ml PO Q12H PRN PRN Reason: Mild Constipation Apixaban (Eliquis) 5 mg PO BID ISMA Bisacodyl (Dulcolax Supp) 10 mg RECTAL DAILY PRN PRN Reason: SEVERE CONSITIPATION Lactulose (Lactulose Liq) 30 ml PO DAILY PRN PRN Reason: SEVERE CONSITIPATION Non-Formulary Medication (Cardizem) 120 mg PO BID ISMA Ondansetron HCl (Zofran Inj) 4 mg IV.PUSH Q6H PRN PRN Reason: NAUSEA OR VOMITING Senna/Docusate Sodium (Mirna-Colace) 1 tab PO BID [facility] Sennosides (Senokot) 17.2 mg PO Q12H PRN PRN Reason: Moderate Constipation Temazepam (Restoril) 15 mg PO HS PRN PRN Reason: INSOMNIA Allergies Allergy/AdvReac Type Severity Reaction Status Date / Time ampicillin Allergy Unknown redness Verified 05/13/18 13:40 codeine Allergy Unknown Cramping Verified 05/13/18 13:40 Home Medications Medication Instructions Recorded Confirmed Type Cardizem 120 mg PO BID 05/13/18 05/13/18 History apixaban [Eliquis] 5 mg PO BID 05/13/18 05/13/18 History Exam Vital signs: Vital Signs 05/13/18 13:29 05/13/18 13:40 05/13/18 14:40 Temperature 97.4 F L Pulse Rate 78 76 76 Respiratory Rate 16 18 18 Blood Pressure 157/83 H 143/60 H 126/80 Pulse Oximetry 98 98 98 05/13/18 16:00 05/13/18 18:00 05/13/18 19:00 Temperature Pulse Rate 78 76 76 Respiratory Rate 18 20 18 Blood Pressure 132/86 146/79 H 121/70 Pulse Oximetry 98 97 98 Intake & Output 05/13/18 05/13/18 05/14/18 06:59 18:59 06:59 Weight 105.233 kg Narrative: Gen.: No acute distress Head: Normocephalic. Atraumatic. EENT: Pupils equal round and reactive to light. Nose without drainage. Airway intact. Throat without injection. Cardiovascular: Regular rate and irregularly irregular rhythm. No murmurs, rubs or gallops. Respiratory: Lungs clear to auscultation bilaterally. No wheezes or rhonchi. Abdomen: Soft, nontender, nondistended. No peritoneal signs. Musculoskeletal: No gross deformities. No edema. Skin: No obvious rashes or erythema. Neuro: Sensory and motor grossly intact. Cranial nerves II through XII grossly intact. Psych: Appropriate mood and affect Results - Labs CBC & Chem 7: 05/13/18 14:03 05/13/18 14:03 Labs: Laboratory Results - last 24 hr 05/13/18 05/13/18 14:03 14:03 WBC 8.4 RBC 5.69 Hgb 16.8 Hct 50.3 MCV 88.5 MCH 29.6 MCHC 33.5 RDW 14.0 Plt Count 192 MPV 10.3 Neut % (Auto) 68.1 Lymph % (Auto) 21.0 [place] % (Auto) 9.5 H Eos % (Auto) 1.0 Baso % (Auto) 0.4 Neut # (Auto) 5.7 Lymph # (Auto) 1.8 [place] # (Auto) 0.8 Eos # (Auto) 0.1 Baso # (Auto) 0.0 WBC Differential . Differential Comment Auto diff final Sodium 141 Potassium 4.2 Chloride 110 H Carbon Dioxide 23.8 Anion Gap 7 BUN 14 Creatinine 1.28 Estimated GFR 56 L Random Glucose 93 Calcium 8.8 Total Creatine Kinase 109 CK-MB (CK-2) 2.0 Troponin I Less than 0.02 L - Imaging Impressions Chest X-Ray 05/13/18 13:40 CONCLUSION: Negative for an acute process Caprini VTE Risk Assessment Caprini VTE Risk Assessment: Moderate/High Risk (score >= 2) Caprini Risk Assessment Model: Point Value = 1 Point Value = 2 Point Value = 3 Point Value = 5 Age 41-60 Minor surgery BMI > 25 kg/m2 Swollen legs Varicose veins or History of unexplained or recurrent spontaneous Oral contraceptives or hormone replacement Sepsis (< 1 month) Serious lung disease, including pneumonia (< 1 month) Abnormal pulmonary function Acute myocardial infarction Congestive heart failure (< 1 month) History of inflammatory bowel disease Medical patient at bed rest Age 61-74 Arthroscopic surgery Major open surgery (> 45 min) Laparoscopic surgery (> 45 min) Malignancy Confined to bed (> 72 hours) Immobilizing plaster cast Central venous access Age >= 75 History of VTE Family history of VTE Factor V Leiden Prothrombin [id number] Lupus anticoagulant Anticardiolipin antibodies Elevated serum homocysteine Heparin-induced thrombocytopenia Other congenital or acquired thrombophilia Stroke (< 1 month) Elective arthroplasty Hip, pelvis, or leg fracture Acute spinal cord injury (< 1 month) Prophylaxis Regimen: Total Risk Factor Score Risk Level Prophylaxis Regimen 0-1 Low Early ambulation 2 Moderate Order ONE of the following: *Sequential Compression Device (SCD) *Heparin 5000 units SQ BID 3-4 Higher Order ONE of the following medications: *Heparin 5000 units SQ TID *Enoxaparin/Lovenox 40 mg SQ daily (WT < 150 kg, CrCl > 30 mL/min) *Enoxaparin/Lovenox 30 mg SQ daily (WT < 150 kg, CrCl > 10-29 mL/min) *Enoxaparin/Lovenox 30 mg SQ BID (WT < 150 kg, CrCl > 30 mL/min) AND/OR *Sequential Compression Device (SCD) 5 or more Highest Order ONE of the following medications: *Heparin 5000 units SQ TID (Preferred with Epidurals) *Enoxaparin/Lovenox 40 mg SQ daily (WT < 150 kg, CrCl > 30 mL/min) *Enoxaparin/Lovenox 30 mg SQ daily (WT < 150 kg, CrCl > 10-29 mL/min) *Enoxaparin/Lovenox 30 mg SQ BID (WT < 150 kg, CrCl > 30 mL/min) AND *Sequential Compression Device (SCD) Assessment and Plan - Plan Assessment/plan: 1. Presyncope Unclear etiology, concern for cardiac origin Telemetry ACS rule out pending Cardiology consulted, appreciate recommendations Echo/carotid ultrasound pending 2. Atrial fibrillation Patient with history of atrial fibrillation, currently rate controlled Continue home diltiazem and Eliquis FEN Heart healthy diet Electrolytes: Monitor and replete as needed Eliquis
[2018-05-13] MEDS: Senna/Docusate Sodium 8.6/50 MG Tablet PO SCH (23:26)
--- NOTE | 2018-05-13 23:28 | US ---
EXAM DATE: 05/13/2018 10:52 PM EDT AGE/SEX: 67 years / Male INDICATIONS: Syncope. CLINICAL DATA: This is the patient's initial encounter. Patient reports that signs and symptoms have been present for 1 day and indicates a pain score of 0/10. MEDICAL/SURGICAL HISTORY: . Atrial fibrillation. None. COMPARISON: No prior exams available for comparison. VELOCITY PARAMETERS: ICA/CCA Ratio: Right 1.3 , Left 0.5 ICA: Right 98.3 cm/sec, Left 59.2 cm/sec CCA: Right 76.6 cm/sec, Left 120.9 cm/sec ECA: Right 80.2 cm/sec, Left 85.5 cm/sec Vertebral: Right 42.7 cm/sec antegrade, Left 60.3 cm/sec antegrade FINDINGS: Right Carotid: Minimal plaque.The waveforms are within normal limits. Left Carotid: Minimal plaque. The waveforms are within normal limits. Other: None. CONCLUSION: 1. Right Internal Carotid Artery: Findings indicate <50% stenosis. 2. Left Internal Carotid Artery: Findings indicate <50% stenosis. Electronically signed by: Hansel Nath MD 05/13/2018 11:26 PM EDT
[2018-05-14] MEDS ORDERED: dilTIAZem CD 240 MG Capsule PO SCH (09:00)
--- NOTE | 2018-05-14 12:07 | P.PN ---
Subjective Interval history: Follow up for presyncope. The patient reports feeling better today. Denies any further episodes of near syncope. Denies any lightheadedness, dizziness, chest pain, palpitations, shortness of breath, or abdominal complaints. He states he was recently told by Dr. Fletcher to increase his cardizem from 120mg to 240mg daily due to recent tachycardia in the 120s. He states he was finally getting his heart rate under control when this happened. He has no other medical complaints at this time. Physical Exam Vital signs: Vital Signs 05/13/18 13:29 05/13/18 13:40 05/13/18 14:40 Temperature 97.4 F L Pulse Rate 78 76 76 Respiratory Rate 16 18 18 Blood Pressure 157/83 H 143/60 H 126/80 Pulse Oximetry 98 98 98 05/13/18 16:00 05/13/18 18:00 05/13/18 19:00 Temperature Pulse Rate 78 76 76 Respiratory Rate 18 20 18 Blood Pressure 132/86 146/79 H 121/70 Pulse Oximetry 98 97 98 05/13/18 20:00 05/14/18 00:00 05/14/18 04:00 Temperature 97.4 F L 98.3 F 97.8 F Pulse Rate 78 70 69 Respiratory Rate 18 20 18 Blood Pressure 139/83 120/74 130/80 Pulse Oximetry 98 97 96 05/14/18 08:00 Temperature 97.5 F L Pulse Rate 65 Respiratory Rate 18 Blood Pressure 130/85 Pulse Oximetry 94 L Intake & Output 05/13/18 05/14/18 05/14/18 18:59 06:59 18:59 Intake Total 700 / 700 Output Total 3 / 3 Balance 697 / 697 Weight 105.233 kg 105.233 kg Intake: Oral 700 / 700 Output: Urine 3 / 3 Other: Weight On Admission 105.233 kg Narrative: GENERAL: Well-nourished, well-developed male patient in [facility]. SKIN: Warm and dry. No rash. HEENT: Normocephalic. Atraumatic. Pupils equal and round. Mucous membranes pink and moist. CARDIOVASCULAR: Irregular rate and rhythm. No murmur appreciated. RESPIRATORY: No accessory muscle use. Clear to auscultation. Breath sounds equal bilaterally. GASTROINTESTINAL: Abdomen soft, non-tender, nondistended. Normoactive bowel sounds x4. MUSCULOSKELETAL: No obvious deformities. Extremities without clubbing, cyanosis , or edema. NEUROLOGICAL: Awake and alert. No obvious cranial nerve deficits. Motor grossly within normal limits. Moving all extremities spontaneously. Normal speech. PSYCHIATRIC: Appropriate mood and affect; insight and judgment normal. Results - Labs CBC & Chem 7: 05/13/18 14:03 05/13/18 14:03 Laboratory Results - last 24 hr 05/13/18 05/13/18 14:03 14:03 WBC 8.4 RBC 5.69 Hgb 16.8 Hct 50.3 MCV 88.5 MCH 29.6 MCHC 33.5 RDW 14.0 Plt Count 192 MPV 10.3 Neut % (Auto) 68.1 Lymph % (Auto) 21.0 [place] % (Auto) 9.5 H Eos % (Auto) 1.0 Baso % (Auto) 0.4 Neut # (Auto) 5.7 Lymph # (Auto) 1.8 [place] # (Auto) 0.8 Eos # (Auto) 0.1 Baso # (Auto) 0.0 WBC Differential . Differential Comment Auto diff final Sodium 141 Potassium 4.2 Chloride 110 H Carbon Dioxide 23.8 Anion Gap 7 BUN 14 Creatinine 1.28 Estimated GFR 56 L Random Glucose 93 Calcium 8.8 Total Creatine Kinase 109 CK-MB (CK-2) 2.0 Troponin I Less than 0.02 L - Imaging Impressions Carotid Doppler Study 05/13/18 00:00 CONCLUSION: 1. Right Internal Carotid Artery: Findings indicate <50% stenosis. 2. Left Internal Carotid Artery: Findings indicate <50% stenosis. Chest X-Ray 05/13/18 13:40 CONCLUSION: Negative for an acute process Assessment and Plan - Plan 67-year-old male with a past medical history significant for atrial fibrillation , anticoagulated on Eliquis, presents the emergency department for evaluation of a presyncopal episode. Presyncope: unclear etiology, concern for cardiac origin with history of arrhythmia -Monitor on telemetry -Troponin negative x1, patient refusing any further labs draws -EKGs reviewed, shows afib, no acute ischemic changes -Monitor on telemetry -Echocardiogram with normal EF 55-60% -Carotid U/S with minimal plaque; no significant stenosis -Cardiology consulted, patient known to Dr. Fletcher, await recommendations Atrial fibrillation: Patient with history of atrial fibrillation diagnosed Jul 2017, currently rate controlled -Continue home diltiazem and Eliquis -Monitor on telemetry DVT Prophylaxis: on Eliquis Discharge Planning: Discharge pending further recommendations and clearance from cardiology. 1830hrs: RN informs me the patient was seen by Dr. Pa and is cleared for discharge from cardiology standpoint. The patient refusing any further intervention such as ablation. He will be discharged home. Discharge patient to home Condition on discharge: Stable Heart Healthy diet as tolerated Ad Althea activity Rx written: none Follow-up with primary care physician and cardiology
[2018-05-14] MEDS: Senna/Docusate Sodium 8.6/50 MG Tablet PO SCH (12:50)
--- NOTE | 2018-05-14 15:19 | ECHRPT ---
Indication: AFLUTTER CONCLUSIONS The left ventricular systolic function is normal with an estimated ejection fraction in the range of 55-60%. Normal left ventricular size. Wall thickness is normal. No regional wall motion abnormalities are present. Trivial pulmonary valve regurgitation. BP: / HR: Rhythm: Atrial flutter MEASUREMENTS (Male / Female) Normal Values Technical Quality:Good 2D ECHO LV Diastolic Diameter PLAX 4.4 cm 4.2 - 5.9 / 3.9 - 5.3 cm LV Systolic Diameter PLAX 3.3 cm IVS Diastolic Thickness 1.1 cm 0.6 - 1.0 / 0.6 - 0.9 cm LVPW Diastolic Thickness 1.1 cm 0.6 - 1.0 / 0.6 - 0.9 cm LV Relative Wall Thickness 0.5 RV Internal Dim ED PLAX 3.0 cm LVOT Diameter 2.2 cm LA Systolic Diameter LX 3.8 cm 3.0 - 4.0 / 2.7 - 3.8 cm LV Ejection Fraction MOD 4C 58.0 % LV Ejection Fraction 4C AL 57.2 % M-MODE Aortic Root Diameter MM 2.9 cm LA Systolic Diameter MM 3.7 cm LA Ao Ratio MM 1.3 AV Cusp Separation MM 2.3 cm DOPPLER AV Peak Velocity 106.0 cm/s AV Peak Gradient 4.5 mmHg LVOT Peak Velocity 71.6 cm/s LVOT Peak Gradient 2.1 mmHg AV Area Cont Eq pk 2.6 cm MV Area PHT 4.4 cm LV E' Lateral Velocity 16.3 cm/s LV E' Septal Velocity 13.2 cm/s PV Peak Velocity 103.0 cm/s PV Peak Gradient 4.2 mmHg FINDINGS LEFT VENTRICLE The left ventricular systolic function is normal with an estimated ejection fraction in the range of 55-60%. Normal left ventricular size. Wall thickness is normal. No regional wall motion abnormalities are present. RIGHT VENTRICLE Normal right ventricular size and systolic function. LEFT ATRIUM The left atrial size is normal. RIGHT ATRIUM The right atrial size is normal. ATRIAL SEPTUM Normal atrial septal thickness without atrial level shunting by limited color doppler interrogation. AORTA The aortic root and proximal ascending aorta are normal in size on limited imaging. MITRAL VALVE Structurally normal mitral valve. No mitral valve stenosis or regurgitation. AORTIC VALVE Trileaflet aortic valve. No aortic valve stenosis or regurgitation. TRICUSPID VALVE Structurally normal tricuspid valve. No tricuspid valve stenosis or regurgitation. PULMONARY VALVE Trivial pulmonary valve regurgitation. VESSELS The inferior vena cava is normal in size. PERICARDIUM No pericardial effusion. Mathew Freire MD (Electronically Signed) Final Date:14 May 2018 15:18
--- NOTE | 2018-05-14 19:14 | ECG ---
Date Performed: 05/13/2018 Time Performed: 13:47:16 PTAGE: 67 years EKG: ATRIAL FLUTTER/TACHYCARDIA PROLONGED QT INTERVAL ABNORMAL ECG NO PREVIOUS TRACING DOCTOR: Marcy Moya Interpretating Date/Time 05/14/2018 19:13:17
--- NOTE | 2018-05-14 19:15 | ECG ---
Date Performed: 05/14/2018 Time Performed: 01:59:00 PTAGE: 67 years EKG: ATRIAL FIBRILLATION INDETERMINATE AXIS INCOMPLETE RIGHT BUNDLE BRANCH BLOCK ABNORMAL RHYTHM ECG PREVIOUS TRACING : 05/13/2018 20.36 When compared to prior ekg,patient is now in atrial fibrill ation DOCTOR: Marcy Moya Interpretating Date/Time 05/14/2018 19:14:43
--- NOTE | 2018-05-14 19:15 | ECG ---
Date Performed: 05/13/2018 Time Performed: 20:36:02 PTAGE: 67 years EKG: ATRIAL FIBRILLATION INDETERMINATE AXIS INCOMPLETE RIGHT BUNDLE BRANCH BLOCK ABNORMAL ECG PREVIOUS TRACING : 05/13/2018 13.47 When compared to prior ekg, patient is now in atrial flutte r with variable block. DOCTOR: Marcy Moya Interpretating Date/Time 05/14/2018 19:14:21
--- NOTE | 2018-05-17 08:16 | MB ---
cc: Prashanth Pa MD DATE: 05/14/2018 REASON FOR CONSULTATION: Atrial fibrillation, ventricular response. I was called by Dr. Freire to evaluate Mr. Davis. HISTORY OF PRESENT ILLNESS: He is a 67-year-old gentleman, previously seen by Dr. Fletcher, history of atrial fibrillation, on anticoagulation, which is very difficult to control. He comes to the emergency room due to dizziness and near syncope and tachyarrhythmia. [facility] hospitalization, it was controlled. I was consulted for evaluation and management. The chart was reviewed. The patient was evaluated. ALLERGIES: AMPICILLIN, CODEINE. SOCIAL HISTORY: The gentleman denied smoking and drinking. He states he quit smoking over 40 years ago. Drinks occasionally. FAMILY HISTORY: Noncontributory to his current medical condition. MEDICATIONS: He is on Eliquis 5 mg twice a day, he is on temazepam, he is on Ambien. REVIEW OF SYSTEMS: According to the patient, referred no chest pain. Some shortness of breath and palpitation, but no fever. PHYSICAL EXAMINATION: GENERAL: Alert, fully oriented. VITAL SIGNS: Blood pressure on evaluation was 140/87, pulse around 95, respiratory rate 20. LUNGS: Ventilated. CARDIOVASCULAR: S1, S2, irregular. No gallop. ABDOMEN: Soft. No mass, no bruit. EXTREMITIES: With no edema. STUDY: Electrocardiogram atrial fibrillation, diffuse ST changes. Previous electrocardiogram earlier was a . LABORATORY DATA: Hemoglobin is 16.8, white blood cell 8.4. Potassium 4.2, creatinine 1.28. Troponin less than 0.02. ASSESSMENT AND RECOMMENDATIONS: Mr. Davis has atrial fibrillation. He is on anticoagulation. Heart rate very difficult to control. any kind of antiarrhythmic medication. The gentleman cites multiple studies about atrial fibrillation management. I am not sure that the gentleman fully understands these studies. I discussed with him the best way to control the heart rate is use of antiarrhythmic medication, cardioversion versus ablation. At this point, the gentleman states he just wants to keep taking the anticoagulation. When he is getting more symptomatic, then he will decide what to do next. I explained to him with atrial fibrillation, the longer the waiting period to control or to restore sinus rhythm, the more difficult it is going to be in the future. This gentleman wants to go home. He will followup in the office by Dr. Fletcher. I will see him again if necessary. The case extensively discussed close to an hour with him and his . MD ASHER Gabriel/WISAM , 07:41 PM , 08:11 PM
== END 2018-05-14 19:05 | disposition home or self-care (01) ==
LOC: NEPE 12:43 → NEDA 12:43 → NEPHCDU 12:43 → NEDA 21:03 → NEPHCDU 21:38
PROVIDERS: ADMIT Family Medicine; ATTEND Family Medicine
DX: I37.1 Nonrheumatic pulmonary valve insufficiency; R00.0 Tachycardia, unspecified; I48.91 Unspecified atrial fibrillation; I65.23 Occlusion and stenosis of bilateral carotid arteries; R07.9 Chest pain, unspecified; Z79.01 Long term (current) use of anticoagulants; R55 Syncope and collapse; Z79.899 Other long term (current) drug therapy; I48.92 Unspecified atrial flutter; R06.02 Shortness of breath; R42 Dizziness and giddiness; Z87.891 Personal history of nicotine dependence